=== PATIENT | male | born 1980 | race African-American/Black ===

== ENCOUNTER 2020-09-14 12:55 | Emergency (ER) | payer SELFPAY | END 2020-09-14 13:53 | disposition left against medical advice (07) | LOC: ER 12:57 | DX: M54.2 Cervicalgia (principal) ==

== ENCOUNTER 2020-09-14 21:03 | Emergency (ER) | payer SELFPAY ==
[~2020-09-14] VITALS: Ht 182.8 cm; Wt 95.3 kg
--- NOTE | 2020-09-14 21:54 | ED Headache ---
General Chief Complaint: Head/Cervical Problems Stated Complaint: NECK PAIN Nursing Triage Note: TO ED VIA POV AND AMBULATORY TO ROOM 5, PT STATES HE LANDED ON NECK DOING BACK FLIPS ON TRAMPOLINE LAST NOC AT 2300. STATES HE FELT A POP AT THE TIME, CURRENTLY HAS NECK PAIN, AND PAIN DOWN BILATERAL ARMS. Source: patient Exam Limitations: no limitations (LIANA STEPHENS APRN) History of Present Illness Date Seen by Provider: Sep 14, 2020 Time Seen by Provider: 21:52 Initial Comments To ER with reports that he was jumping on the trampoline last night, landed on his head extending his neck he believes (though he does not recall exactly). He initially had numbness of both of his legs lasting for about 60 seconds but that has completely resolved. Either way he has persistent gpgy-lup-enxlvfj hyperesthesia of both upper extremities and weakness of both upper extremities since that injury 24 hours ago Timing/Duration: 1 week Severity/Quality: pressure Location: frontal Associated Symptoms: denies symptoms (LIANA STEPHENS APRN) Allergies and Home Medications Allergies Coded Allergies: No Known Drug Allergies (Unverified , 09/14/20) Patient Home Medication List Home Medication List Reviewed: Yes (LIANA STEPHENS APRN) Home Medication List Reviewed: Yes (CHELY HAWK) Review of Systems Review of Systems Constitutional: see HPI Eyes: No Symptoms Reported Ears, Nose, Mouth, Throat: no symptoms reported Respiratory: no symptoms reported Cardiovascular: no symptoms reported Genitourinary: no symptoms reported Musculoskeletal: no symptoms reported Skin: no symptoms reported Psychiatric/Neurological: No Symptoms Reported (LIANA STEPHENS APRN) Past Fguwzxu-Mcwrxt-Nntvfl Hx Patient Social History Tobacco Use?: Yes Tobacco type used: Cigarettes Smoking Status: Current Everyday Smoker Substance use?: Yes Substance type: Marijuana Alcohol Use?: Yes Alcohol Frequency: Daily Pt feels they are or have been: No (LIANA STEPHENS APRN) Tobacco Use?: No Use of E-Cig and/or Vaping dev: No Substance use?: No (CHELY HAWK) Physical Exam Vital Signs Vital Signs - First Documented 09/14/20 09/15/20 21:13 00:25 Temp 37.0 Pulse 76 Resp 16 B/P (MAP) 137/116 (123) Pulse Ox 99 O2 Delivery Room Air (CHELY HAWK) Vital Signs Capillary Refill : Less Than 3 Seconds (LIANA STEPHENS APRN) Height, Weight, BMI Height: '" Weight: lbs. oz. kg; 28.00 BMI Method: General Appearance: WD/WN, no apparent distress HEENT: PERRL/EOMI, normal ENT inspection Cardiovascular: regular rate, rhythm, no murmur Respiratory: normal breath sounds, no respiratory distress, no accessory muscle use Extremities: normal range of motion, non-tender Psychiatric: alert, oriented x 3 Crainal Nerves: normal hearing, normal speech, PERRL Skin: normal color, warm/dry (LIANA STEPHENS APRN) Progress/Results/Core Measures Results/Orders My Orders Orders - CHELY HAWK Hydrocodone/Apap 10/325 Tablet (Lortab 1 (09/14/20 23:45) Fentanyl Inj (Sublimaze Injection) (09/15/20 00:00) (CHELY HAWK) Medications Given in ED (CHELY HAWK) Vital Signs/I&O 09/14/20 09/15/20 21:13 00:25 Temp 37.0 Pulse 76 63 Resp 16 16 B/P (MAP) 137/116 (123) 142/106 (123) Pulse Ox 99 O2 Delivery Room Air Room Air (CHELY HAWK) Blood Pressure Mean: 123 Progress Progress Note : Time: 23:34 Progress Note C3/C4 cord compression recommends MRI. We do not have MRI locally available so we are doing a trauma ER to ER transfer to [facility]. Siena did not answer on the first attempt. C-collar and C-spine precautions held in place. Fentanyl 75 mcg IM. (CHELY HAWK) Diagnostic Imaging Diagonstic Imaging: CT Plain Films/CT/US/NM/MRI: c-spine, head Comments Negative for evidence of mass, mass-effect or intracranial hemorrhage. Negative for fracture or malalignment. Multilevel degenerative changes resulting in multilevel central canal and foraminal narrowing. Prominent disc bulging C3/C4. There is central and focal protrusion at the C4/C5 level. Recommend MRI for further evaluation. [facility] [place] NAME: CHANDRAKANT DAVIDSON MED REC#: [id number] PT STATUS: DEP ER : 1980 PHYSICIAN: LIANA STEPHENS APRN ADMIT DATE: 09/14/20/ER Signed Date of Exam:09/14/20 CT HEAD/CERVICAL SPINE WO PROCEDURE: CT head and CT cervical spine without contrast. TECHNIQUE: Multiple contiguous axial images were obtained through the brain and cervical spine without the use of intravenous contrast. Sagittal and coronal reformations through the cervical spine were then performed. Auto Exposure Controls were utilized during the CT exam to meet ALARA standards for radiation dose reduction. Indication: Head and neck pain, reported jumping on trampoline yesterday. Comparison: None. Discussion: Head: No intracranial hemorrhage, mass, midline shift, or hydrocephalus. The ventricles and sulci are normal size and configuration for age. The visualized orbits, paranasal sinuses, mastoid air cells, and calvarium are unremarkable. Cervical spine: No fracture or subluxation. Mild degenerative disc disease is noted. Prominent disc bulges are present at C3-C4 and C4-C5. Noncontrast MRI of the cervical spine could be performed on a nonemergent basis to further evaluate central canal neuroforaminal narrowing. Alignment is anatomic. Paraspinal soft tissues are unremarkable. Impression: 1. Negative head CT. 2. Degenerative changes within the cervical spine with disc bulges noted. See above recommendations. No acute osseous abnormality. 3. Agree with preliminary report. Dictated by: Dictated on workstation # [id number] Dict: 09/15/20 0625 Trans: 09/15/20 1545 ESTER [id number] Interpreted by: ARPIT PEARCE MD Electronically signed by: ARPIT PEARCE MD 09/15/20 1545 Reviewed: Reviewed by Me (CHELY HAWK) Departure Impression Primary Impression: Cord compression Additional Impression: Activities involving trampoline Disposition: XFER SHT-TRM HOSP Condition: Stable Admissions Decision to Admit/Date: Sep 14, 2020 (LIANA STEPHENS APRN) Transfer Transfer Reason: Exceeds level of care (No MRI available) Time Spoke to Accepting Phy: 23:40 Transfer Progress Notes [facility] on [facility] triage called at 1135. Spoke with Dr[address] Sanchez at 1140. He accepts the patient directly to the ER. Transfer Facility: [facility] [place], [place] Method of Transfer: Private Vehicle (CHELY HAWK) Departure-Patient Inst. Referrals: NO,LOCAL PHYSICIAN (PCP/Family) Primary Care Physician LIANA STEPHENS APRN Sep 14, 2020 21:54 CHELY HAWK Sep 14, 2020 23:40
[2020-09-15] MEDS ORDERED: fentaNYL INJ 100 MCG/2 ML AMP IM ONE
[2020-09-15 00:25] VITALS: BP 142/106
--- NOTE | 2020-09-15 06:34 | Diagnostic Imaging Report ---
PROCEDURE: CT head and CT cervical spine without contrast. TECHNIQUE: Multiple contiguous axial images were obtained through the brain and cervical spine without the use of intravenous contrast. Sagittal and coronal reformations through the cervical spine were then performed. Auto Exposure Controls were utilized during the CT exam to meet ALARA standards for radiation dose reduction. Indication: Head and neck pain, reported jumping on trampoline yesterday. Comparison: None. Discussion: Head: No intracranial hemorrhage, mass, midline shift, or hydrocephalus. The ventricles and sulci are normal size and configuration for age. The visualized orbits, paranasal sinuses, mastoid air cells, and calvarium are unremarkable. Cervical spine: No fracture or subluxation. Mild degenerative disc disease is noted. Prominent disc bulges are present at C3-C4 and C4-C5. Noncontrast MRI of the cervical spine could be performed on a nonemergent basis to further evaluate central canal neuroforaminal narrowing. Alignment is anatomic. Paraspinal soft tissues are unremarkable. Impression: 1. Negative head CT. 2. Degenerative changes within the cervical spine with disc bulges noted. See above recommendations. No acute osseous abnormality. 3. Agree with preliminary report. Dictated by: Dictated on workstation # [id number]
== END 2020-09-15 00:25 | disposition short-term general hospital (02) ==
LOC: EDUNIT# 21:03 → ER 21:04
DX: G95.29 Other cord compression (principal); F17.210 Nicotine dependence, cigarettes, uncomplicated; Y93.44 Activity, trampolining
CPT/HCPCS: 70450; 72125